=== PATIENT | male | born 1950 | race Caucasian/White ===

== ENCOUNTER 2016-10-22 10:42 | Emergency (ER) | payer MEDICARE, MEDICAID ==
[2016-10-22 10:50] VITALS: BP 175/79
--- NOTE | 2016-10-22 11:16 | ED ---
Upper Extremity Pain - History of Current Complaint Chief Complaint: EDExtremityUpper Stated Complaint: RT HAND / RING STUCK ON FINGER Hx Obtained From: Patient Onset/Duration: Started Days Ago - 3 days ago he put ring on R ring finger and now can't get it off. becoming more painful and swollen Timing: Constant Severity Initially: Mild Severity Currently: Moderate Character: Throbbing, Burning Aggravating Factor(s): Nothing Alleviating Factor(s): Nothing Associated Signs & Symptoms: Positive: Swelling. Negative: Redness, Bruising - Allergies/Home Medications Allergies/Adverse Reactions: Allergies Allergy/AdvReac Type Severity Reaction Status Date / Time No Known Allergies Allergy Verified 10/22/16 10:47 PMH/Surg Hx/FS Hx/Imm Hx Previously Healthy: Yes Endocrine/Hematology History: Denies: Hx Anticoagulant Therapy Cardiovascular History: Denies: Hx Congenital Heart Disease, Hx Hypertension Respiratory History: Denies: Hx Asthma, Hx Chronic Obstructive Pulmonary Disease (COPD) Musculoskeletal History: Denies: Other Musculoskeletal History Neurological History: Denies: Hx Headaches, Hx Migraine Psychiatric History: Denies: Hx Anxiety, Hx Depression - Surgical History Surgery Procedure, Year, and Place: [facility] Infectious Disease History: No Infectious Disease History: Denies: Traveled Outside the [place] in Last 30 Days - Family History Known Family History: Positive: None - Social History Occupation: Employed Full-time Lives: With Family Alcohol Use: Daily Alcohol Amount: "6 pack" Substance Use Type: Reports: None Substance Use Comment - Amount & Last Used: Hx of drug abuse, 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, meth Hx Tobacco Use: Yes Smoking Status (MU): Former Smoker Review of Systems Constitutional: Negative Negative: Fever, Chills Cardiovascular: Negative Respiratory: Negative Musculoskeletal: Other - R 4th finger pain Skin: Other - swollen R4th finger Neurological: Negative Psychological: Normal All Other Systems Reviewed And Are Negative: Yes Physical Exam Triage Information Reviewed: Yes Vital Signs On Initial Exam: Initial Vitals Temp Pulse Resp BP Pulse Ox 98.1 F 81 16 175/79 100 10/22/16 10:47 10/22/16 10:47 10/22/16 10:47 10/22/16 10:47 10/22/16 10:47 Vital Signs Reviewed: Yes Appearance: Positive: Well-Appearing, No Pain Distress, Obese Skin: Positive: Warm, Skin Color Reflects Adequate Perfusion, Dry Neck: Positive: No Lymphadenopathy Respiratory/Lung Sounds: Positive: Clear to Auscultation Cardiovascular: Positive: Normal, RRR, Pulses are Symmetrical in both Upper and Lower Extremities Musculoskeletal: Positive: Other - R 4th finger: ring intact to base of finger, swelling and pain distal to ring,. small blister noted at ring edge on palmar surface finger. no bleeding or drainage Neurological: Positive: Normal Psychiatric: Positive: Normal Procedures - Procedure Summary Procedure Summary: ring cutter used to remove ring from swollen R 4th finger. skin underneath ring is erythemic and cracked, no drainage, foul smell Diagnostics - Vital Signs Vital Signs Temp Pulse Resp BP Pulse Ox 10/22/16 10:47 98.1 F 81 16 175/79 100 - Laboratory Lab Statement: Any lab studies that have been ordered have been reviewed, and results considered in the medical decision making process. Re-Evaluation - Re-Evaluation First Eval Re-Evaluation Time: 11:50 Change: Improved - states pain is minimal, skin is cracked and maserated where ring coverd skin, mild erythema, no drainage or streaking Course/Dx - Diagnoses Differential Diagnosis/HQI/PQRI: Positive: Other - bacterial infection, fungal infection, compromised circulation Provider Diagnoses: Fungal infection of skin Discharge - Discharge Plan Condition: Improved Disposition: HOME Patient Education Materials: Tinea Corporis (ED) Referrals: Jeffrey Wilson MD [Primary Care Provider] - 2 Days (if no better) Additional Instructions: keep finger clean dry and elevated apply antifungal cream (Lotrimin) 2-3 times a day for 5 days Return if problems worsen
== END 2016-10-22 12:20 | disposition home or self-care (01) ==
LOC: ED 10:42
DX: B36.9 Superficial mycosis, unspecified (principal); Z87.891 Personal history of nicotine dependence; R60.0 Localized edema
CPT/HCPCS: 99281

== ENCOUNTER 2022-06-16 11:32 | Observation (INO) ==
[2022-06-16] MEDS ORDERED: Iodixanol (CONTRAST) 320 MG/ML 100 ML SDV IV ONE (11:56)
[2022-06-16 12:32] LABS: ABS Eosinophils 0.1 10^3/ul (0-0.6); ABS Monocytes 0.5 10^3/ul (0-0.8); ABS Neutrophils 5.4 10^3/ul (1.5-7.7); Eosinophil % 1.6 %; Hematocrit 42 % (42-52); Hemoglobin 13.8 g/dL (14.0-18.0); Lymphocyte % 13.8 %; Mean Corpuscular HGB Conc 33 g/dL (31-36); Mean Corpuscular Hemoglobin 32 pg (27-31); Mean Corpuscular Volume 96 fL (80-94); Mean Platelet Volume 9.3 fL (7.4-10.4); Nucleated Red Blood Cells % 0.1; Platelet Count 211 10^3/uL (150-450); Red Blood Count 4.34 10^6 /uL (4.18-5.48); Red Cell Distribution Width 14 % (10-15)
[2022-06-16 12:44] LABS: Activated Partial Thrombo Time 30.3 seconds (26.0-38.0); INR 0.99 (0.89-1.11)
[2022-06-16 13:27] LABS: Albumin 3.7 g/dL (3.2-5.2); Albumin/Globulin Ratio 1.8 (1-3); Calcium 8.5 mg/dL (8.6-10.3); Globulin 2.1 g/dL (2-4); HDL Cholesterol 35.2 mg/dL; Potassium 4.5 mmol/L (3.5-5.0); Total Bilirubin 0.5 mg/dL (0.2-1.0); Total Protein 5.8 g/dL (6.4-8.9); eGFR CKD-EPI 98.6 (>60)
[2022-06-16] MEDS ORDERED: Gadoteridol (CONTRAST) 279.3 MG/ML 10 ML IV ONE (17:15)
[2022-06-17 06:25] LABS: ABS Basophils 0.1 10^3/ul (0-0.2); ABS Eosinophils 0.1 10^3/ul (0-0.6); ABS Lymphocytes 1.5 10^3/ul (1.0-4.8); ABS Monocytes 0.7 10^3/ul (0-0.8); ABS Neutrophils 6.1 10^3/ul (1.5-7.7); Eosinophil % 1.6 %; Hematocrit 43 % (42-52); Hemoglobin 14.2 g/dL (14.0-18.0); Lymphocyte % 17.9 %; Mean Corpuscular HGB Conc 33 g/dL (31-36); Mean Corpuscular Hemoglobin 32 pg (27-31); Mean Corpuscular Volume 96 fL (80-94); Mean Platelet Volume 9.7 fL (7.4-10.4); Platelet Count 204 10^3/uL (150-450); Red Blood Count 4.49 10^6 /uL (4.18-5.48); Red Cell Distribution Width 14 % (10-15); White Blood Count 8.6 10^3/uL (3.5-10.8)
[2022-06-17 06:56] LABS: Calcium 8.5 mg/dL (8.6-10.3); Potassium 4.3 mmol/L (3.5-5.0); eGFR CKD-EPI 96.1 (>60)
[2022-06-17] MEDS ORDERED: Perflutren Lipid Microsphere 3 ML VIAL ONE (13:18)
[2022-06-17 16:46] VITALS: BP 133/60
== END 2022-06-17 18:05 | disposition home or self-care (01) ==
LOC: EDHOLD 11:32 → ED 11:32 → MEDTELE 21:47
PROVIDERS: ADMIT Internal Medicine; ATTEND Internal Medicine